=== PATIENT | male | born 1985 | race Caucasian/White ===

== ENCOUNTER 2017-03-14 00:31 | Inpatient (IN) | payer OTHER ==
[2017-03-14 01:29] LABS: Hematocrit 54 % (42-52); Hemoglobin 18.1 g/dl (14.0-18.0); Mean Corpuscular HGB Conc 34 g/dl (31-36); Mean Corpuscular Hemoglobin 30 pg (27-31); Mean Corpuscular Volume 90 fL (80-94); Mean Platelet Volume 9 um3 (7.4-10.4); Red Cell Distribution Width 13 % (10.5-15); White Blood Count 8.4 10^3/ul (3.5-10.8)
[2017-03-14 01:34] LABS: Urine Bacteria Absent (Absent); Urine Bilirubin Negative (Negative); Urine Glucose Negative (Negative); Urine Nitrite Negative (Negative)
[2017-03-14 01:35] LABS: Add Diff/Slide Review? Slide Review Added; Comments Flag Yes
[2017-03-14 01:39] LABS: ALT 29 U/L (7-52); AST 33 U/L (13-39); Albumin 5.4 g/dL (3.2-5.2); Alkaline Phosphatase 53 U/L (34-104); Anion Gap 11 mmol/L (2-11); BUN/Creatinine Ratio 13.4 (8-20); Blood Urea Nitrogen 13 mg/dL (6-24); CO2 Carbon Dioxide 25 mmol/L (22-32); Calcium 9.3 mg/dL (8.6-10.3); Chloride 103 mmol/L (101-111); EGFR African American 117.7 (>60); EGFR Non-African American 91.5 (>60); Globulin 3.1 g/dL (2-4); Glucose 96 mg/dL (70-100); Potassium 3.8 mmol/L (3.5-5.0); Sodium 139 mmol/L (133-145); Total Protein 8.5 g/dL (6.4-8.9)
[2017-03-14 01:42] LABS: Benzodiazepine Urine Screen None Detected (None Detect)
[2017-03-14 02:22] LABS: Acetaminophen < 15 mcg/mL; Alcohol 281 mg/dL (<10); Salicylate < 2.50 mg/dL (<30)
[2017-03-14 02:33] LABS: TSH (Thyroid Stimulating Horm) 3.59 mcIU/mL (0.34-5.60)
[2017-03-14] MEDS ORDERED: Acetaminophen TAB* 325 MG PO PRN (11:16)
[2017-03-14] MEDS ORDERED: Mouth Piece, Nicotine* 1 EACH CARTRIDGE INH SCH (11:16)
[2017-03-14] MEDS ORDERED: Nicotine Inhaler* 10 MG AMP INH PRN (11:16)
[2017-03-14] MEDS ORDERED: Al Hydrox/Mg Hydrox/Simet LIQ* 30 ML UDC PO PRN (11:16)
[2017-03-14] MEDS: Vitamin THERAPEUTIC TAB PO SCH (12:02)
[2017-03-14] MEDS ORDERED: hydrOXYzine HCL TAB* 50 MG PO PRN (14:01)
--- NOTE | 2017-03-14 16:05 | PN ---
Suzan Salazar SooYoung, scribed for Be Vance MD on 03/14/17 at 1559 . Progress Note - Progress Note Note: SO from Dr. Molina due to shift change, awaiting MHE. DO spoke with technical stenographer, signed 9.13 for voluntary admission. Dx: depression, EToH abuse, SI. Pt is stable. Admitted. The documentation as recorded by the scribeSuzan SooYoung accurately reflects the service I personally performed and the decisions made by me, Be Vance MD.
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
[2017-03-15] MEDS: Vitamin THERAPEUTIC TAB PO SCH (09:29)
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
[2017-03-16] MEDS: Vitamin THERAPEUTIC TAB PO SCH (09:15)
--- NOTE | 2017-03-16 11:03 | PN ---
MHU: Group Therapy Note - Service Type Service Type: 38414 Group Psychotherapy - Cognitive Behavioral Group Therapy ( CBT):Patient was attentive and participatory in CBT programming this morning, and remained in good behavioral control. Patient expressed positive insights regarding relevant treatment interventions and goals.
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
[2017-03-17] MEDS: Vitamin THERAPEUTIC TAB PO SCH (10:03)
--- NOTE | 2017-03-17 11:22 | PN ---
MHU: Group Therapy Note - Service Type Service Type: [id number] Group Psychotherapy - Cognitive Behavioral Group Therapy ( CBT):Patient was attentive and participatory in CBT programming this morning, and remained in good behavioral control. Patient expressed positive insights regarding relevant treatment interventions and goals.
--- NOTE | 2017-03-17 11:59 | PN ---
Subjective - Subjective Service Type: [id number] Hosp care 15 min low complexity Subjective: The patient remains calm and cooperative, albeit tearful. He believes that his is going to sell their house and leave him, although he admits that he has not called her yet. He is still agreeable with the plan to pursue inpatient rehab. He continues to deny SI. Objective - Appearance Appearance: Well Developed/Nourished Dysmorphic Features: No Hygiene: Normal Grooming: Well Kept - Behavior Psychomotor Activities: Normal Exhibits Abnormal Movement: No - Attitude and Relatedness Attitude and Relatedness: Cooperative Eye Contact: Good - Speech Quality: Unpressured Latencies: Normal Quantity: Appropriate - Mood Patient's Decription of Mood: "Sad" - Affect Observed Affect: Tearful Affect Consistent with: Dysphoria - Thought Process Patient's Thought Process: Coherent Thought Content: No Passive Wish, No Suicidal Planning, No Homicidal Ideation, No Paranoid Ideation - Sensorium Experiencing Hallucinations: No, Sensorium is Clear Type of Hallucinations: Visual: No, Auditory: No, Command: No - Level of Consciousness Level of Consciousness: Alert Orientation: Yes Intact, Yes Orientated to Time, Yes Orientated to Place, Yes Orientated to Person - Impulse Control Impulse Control: Intact - Insight and Judgement Insight and Judgement: Good - Group Participation Particating in Group Activities: Yes - Medication Management Medication Management Adherence: Yes Assessment - Assessment Merits Inpatient Hospitalization: [facility], Pending Safe DC Plan Inpatient DSM-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 , white male with a history of alcoholism admitted on a voluntary status following an incident at a family gathering in which he became intoxicated and took out a loaded pistol, threatening to shoot himself after his informed him she was leaving him. Plan - Plan Treatment Plan: Name: NIMISHA ALTAMIRANO Birthdate: 1985 [id number] The patient shows no evidence of acute alcohol withdrawal and is denying further suicidal thinking since being sober. He admits that his use of alcohol is out of control and he is appropriately seeking substance abuse rehabilitation , preferably in his home community of [place], [place]. Await rehab placement. Continued Medication Management: Consider Medication Medications: Current Medications Acetaminophen (Tylenol Tab*) 650 mg PO Q4H PRN PRN Reason: PAIN or TEMP > 101 F Al Hydrox/Mg Hydrox/Simethicone (Maalox Plus*) 30 ml PO Q4H PRN PRN Reason: INDIGESTION Device (Nicotine Mouth Piece*) 1 each INH .CARTRIDGE SHILPI Hydroxyzine HCl (Atarax Tab*) 50 mg PO Q6H PRN PRN Reason: AGITATION/ANXIETY/INSOMNIA Multivitamins (Theragran Tab*) 1 tab PO DAILY [facility] Last Admin: 03/17/17 10:03 Dose: Not Given Nicotine (Nicotine Inhaler*) 10 mg INH Q2H PRN PRN Reason: CRAVING - Discharge Plan Discharge Plan: Drug/Alcohol Rehab
[2017-03-18] MEDS: Vitamin THERAPEUTIC TAB PO SCH (10:07)
--- NOTE | 2017-03-18 11:27 | PN ---
MHU: Group Therapy Note - Service Type Service Type: [id number] Group Psychotherapy - Cognitive Behavioral Group Therapy ( CBT):Patient was attentive and participatory in CBT programming this morning, and remained in good behavioral control. Patient expressed positive insights regarding relevant treatment interventions and goals.
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
[2017-03-18] MEDS: Sertraline* 50 MG TAB PO SCH (14:18)
[2017-03-19 09:03] VITALS: BP 135/83
[2017-03-19] MEDS: Vitamin THERAPEUTIC TAB PO SCH (09:33)
[2017-03-19] MEDS: Sertraline* 50 MG TAB PO SCH (09:33)
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
== END 2017-03-19 10:15 | disposition home or self-care (01) | DRG 897 ==
LOC: ED 00:31 → BSU 10:12
PROVIDERS: ADMIT Psychiatry & Neurology Psychiatry; ATTEND Psychiatry & Neurology Psychiatry
PROC: GZHZZZZ Group Psychotherapy (ICD-10-PCS; principal; 2017-03-14)
DX: F10.14 Alcohol abuse with alcohol-induced mood disorder (principal); F32.9 Major depressive disorder, single episode, unspecified; Y90.9 Presence of alcohol in blood, level not specified; F41.9 Anxiety disorder, unspecified; F17.210 Nicotine dependence, cigarettes, uncomplicated; Z81.1 Family history of alcohol abuse and dependence; R40.2412 Glasgow coma scale score 13-15, at arrival to emergency department
CPT/HCPCS: 36415; 80053; 80307; 80320; 80329; 81003; 81015; 84443; 85025; 90853; 99222; 99231; 99232; 99238; A9270-GY; G0480